=== PATIENT | female | born 1990 | race Caucasian/White ===

== ENCOUNTER → 2017-10-25 | Outpatient (CLI) | payer OTHER ==
[~2017-10-25] MED LIST: ALPR-429 PO; ALUM35SO4 TP; AMOX500T10 PO; BIOT10005 PO; CLIN300C99 PO; CLIN30GE15 TP; COPPER IUD VA; FLUC150T40 PO; HYDR2TAB4 PO; IBUP800T37 PO; METH0.2T5 PO; METR-160 PO; NORG1TAB95 PO; OMEG-152 PO; OSE75 PO; PARO-243 PO; PNV PO; SPIR50TA31 PO; TRET20CR37 TP; TRIA15OI20 TP
== END ==
LOC: LAB 09:49
PROVIDERS: ATTEND Emergency Medicine
DX: R42 Dizziness and giddiness (principal)
CPT/HCPCS: 36415; 82310; 82374; 82435; 82565; 82947; 83525; 84132; 84295; 84443; 84520